=== PATIENT | female | born 1990 | race Caucasian/White ===

== ENCOUNTER → 2017-10-27 15:37 | Outpatient (CLI) | payer BC, SELFPAY ==
--- NOTE | 2017-10-27 15:42 | RAD_ITS ---
STUDY: X-RAY - LUMBAR SPINE REASON FOR EXAM: Female, 27 years old. Pain TECHNIQUE: 5 view(s) of the lumbar spine were obtained. COMPARISON: None FINDINGS: There is no evidence of fracture or dislocation in the lumbar spine. The vertebral body heights and disc spaces are well-maintained. There are no significant degenerative changes. RAD/L/S Spine Min 4 Views IMPRESSION: No fracture or dislocation in the lumbar spine. Electronically Signed: Stanley Ga, at 23:46 EDT Tel , Service support ,
== END ==
PROVIDERS: PCP Nurse Practitioner; Visit Provider Nurse Practitioner
DX: M54.30 Sciatica, unspecified side (principal)
CPT/HCPCS: 72110

== ENCOUNTER 2017-11-10 11:23 | Outpatient (RCR) | payer BC, SELFPAY ==
--- NOTE | 2017-11-10 13:46 | HP.PTEVAL_ITS ---
Patient's Visit Information AGUILAR CAMARILLO is a 27 year old F referred to Physical Therapy by Jeanie Hernandez NP.MCIESA with a diagnosis of sciatica and core strengthening.. Date of Evaluation: 11/10/17 Physical Therapist: Cecilio Vitale - Visit Plan Frequency: 2x /Week Duration: 4 Weeks Plan: start with ext based exercises, modalities in prone to reduce symptoms. Progress core strengthening in neutral spine. - Subjective Subjective: Pt. is here today for her initial evaluation with diagnosis of sciatica and core strengthening. Pt. reports injuring her back while at work, lifting large bag of dog food. Pt. was given prednisone with relief, and is now taking mobic, but has minimal relief. Pt. had an xray wtih no acute injures. Pt. does have radiating pain down her R leg to ankle at times, but has improved to knee currently. Pt. reports sleeping okay, but last night was bad and was unable to sleep much. Pt. denies N/T in either LE. Pt. denies that her legs are giving out on her. Pt. is back to work, but has been avoiding lifting as much as she can. Pt. is hopeful to reduce her pain and get back to all previous activities withtou limitations. - Pain lumbar spine Pain Intensity (Out of 10): 0 Pain Intensity Range: 0, 3 R lateral hip Pain Intensity (Out of 10): 3 Pain Intensity Range: 1, 6 Comment: burning - Objective POSTURE: Pt. has normal iliasc crest heights, pt. has normal CHARU in stance. Pt. has slight reduction in lumbar lordosis with rounded shoulders. PALPATION: Pt. has increased tenderness throughout bilateral lumbar erector spinea, R worse than L. Pt. has increased tenderness at R SI region and R piriformis region. Pt. has minimal symptoms with spring testing, no hypombility noted. NEUROLOGICAL: Pt. has normal sensation to light and sharp touch of bilateral LEs. Pt. has 2+ bilateral achilles and patellar DTR. Pt. is able to rise on heels and toes without issues. ROM: LUMBAR SPINE: flexion min loss increase NW sided LS, ext min loss tightness in lumbar spine, SB R nil loss NE, Sb L nil loss NE, rotation nil loss bilat NE. Pt. has normal hip ROM, except has increase in symptoms with figure 4 positioning. MMT: RLE- ankle/knee 5/5 throughout; hip- flexion 4/5, and 4/5, ext 4/5. LLE- ankle/knee 5/5 throughout; hip- flexion 4/5, abd 4/5, ext 4/5. Core strength- poor+. GAIT: Pt. ambulates without AD. Pt. has slight flexed poosture in stance. Pt. has normal step length , minimal arm swing. STAIRS: Pt. negotiates with 1 HR with reciprocal pattern without increase in symptoms. - Special Tests L/S Slump test left side: Negative L/S Slump test right side: Positive L/S Left Straight Leg Raise: Positive L/S Right Straight Leg Raise: Negative Lumbar Standing: Flexion - Mechanical Response: No effect Lumbar Standing: Flexion - Symptoms During Testing: Increases Lumbar Standing: Flexion - Symptoms After Testing: No worse Lumbar Standing: Extension - Mechanical Response: No effect Lumbar Standing: Extension - Symptoms During Testing: Centralizing Lumbar Standing: Extension - Symptoms After Testing: No better Lumbar Standing: Right Side Glides - Mechanical Response: No effect Lumbar Standing: Right Side [place] - Symptoms During Testing: No effect Lumbar Standing: Right Side [place] - Symptoms After Testing: No effect Lumbar Standing: Left Side [place] - Mechanical Response: No effect Lumbar Standing: Left Side [place] - Symptoms During Testing: No effect Lumbar Standing: Left Side [place] - Symptoms After Testing: No effect Lumbar Lying: Flexion - Mechanical Response: No effect Lumbar Lying: Flexion - Symptoms During Testing: No effect Lumbar Lying: Flexion - Symptoms After Testing: No effect Lumbar Lying: Extension - Mechanical Response: No effect Lumbar Lying: Extension - Symptoms During Testing: Centralizing Lumbar Lying: Extension - Symptoms After Testing: No better Lumbar Static: Slouched Sit - Mechanical Response: No effect Lumbar Static: Slouched Sit - Symptoms During Testing: Increases Lumbar Static: Slouched Sit - Symptoms After Testing: No worse Lumbar Static: Sitting Erect - Mechanical Response: No effect Lumbar Static: Sitting Erect - Symptoms During Testing: Decreases Lumbar Static: Sitting Erect - Symptoms After Testing: No better Lumbar Static:Lying Prone in Extension - Mechanical Response: No effect Lumbar Static: Lying Prone in Extension - Sx During Testing: Increases Lumbar Static: Lying Prone in Extension - Sx After Testing: No better - Goals Goal 1:: Pt. to be I with HEP. Goal Time Frame: 4-6 Weeks Goal 2:: Pt. to have increased lumbar ROM by 25% in all directions allowing increased tolerance to all functional mobility. Goal Time Frame: 4-6 Weeks Goal 3:: Pt. to have increased B hip and core strength by 1/2 grade to reduce stress applied to lumbar spine with all functional mobility. Goal Time Frame: 4-6 Weeks Goal 4:: Pt. to resume all work activities without increase in symptoms. Goal Time Frame: 4-6 Weeks Goal 5:: Pt. to sleep throughout the night without increase in symptoms allowing for increased quality of life. Goal Time Frame: 4-6 Weeks - Rehabilitation Potential Physical Therapy Diagnosis: Pt. has signs and symptoms of sciatica and core strengthening. Pt. has positive dural signs as seen in slump testing and SLR testing. Pt. would benefit from extension progression, modalities to reduce symptoms followed by core strengthening to reduce stress applied to lumbar spine with all work and functional mobility. Rehabilitation Potential: Excellent - Anticipated Interventions Patient/Client Instruction: Educate patient on: Condition, Plan of Care, Risk Factors, Benefits of Fitness Program For the Purpose of:: To improve decision making, To facilitate caregiver knowledge, To improve self management, To prevent re-injury, To improve ability to perform tasks related to life management, To improve tolerance to ADL's Therapeutic Exercise to Include: Strength training, Power training, Endurance training, Body mechanics, Postural training, Flexibilty training, Passive ROM, Active ROM, Dynamic Lumbar Stabilization, Karen Exercises For the Purpose of:: To decrease pain, To decrease swelling/inflammation, To increase ROM, To improve nutrient delivery to tissue, To increase oxygenation perfusion, To improve muscle performance and motor function, To improve ability to perform ADL's, To increase tolerance to activity/condition/position, To improve performance and independence with ADL's, To decrease level of supervision to perform tasks, To improve ability of physical actions for home/ community/work/leisure, To increase flexibility/ROM Manual Therapy Techniques to Include: Mobilization, Functional dry needling, Soft tissue mobilization For the Purpose of:: To decrease pain, To decrease swelling/inflammation, To increase ROM, To improve nutrient delivery to tissue, To increase oxygenation perfusion, To improve muscle performance and motor function IF ES: Yes Cryotherapy (ice pack, ice massage): Yes For the Purpose of:: To decrease pain, To decrease swelling/inflammation, To increase ROM Thank you for the opportunity to evaluate your patient. For Medicare and Medicare HMO plans, please review the plan of care and approve it. It will need to be FAXED BACK to us at [phone] for Medicare purposes. Please let me know if there are questions or concerns regarding this plan of care. Physician Signature: Date:
--- NOTE | 2018-05-19 08:43 | HP.PTDCNRP_ITS ---
HP - Discharge Summary (1) - Patient Information AGUILAR CAMARILLO was seen in my office for initial evaluation on 11/10/17. The following Plan of Care was established for this patient: Initial Frequency: 2x /Week Initial Duration: 4 Weeks - Anticipated Interventions Patient/Client Instruction: Educate patient on: Condition, Plan of Care, Risk Factors, Benefits of Fitness Program For the Purpose of:: To improve decision making, To facilitate caregiver knowledge, To improve self management, To prevent re-injury, To improve ability to perform tasks related to life management, To improve tolerance to ADL's Therapeutic Exercise to Include: Strength training, Power training, Endurance training, Body mechanics, Postural training, Flexibilty training, Passive ROM, Active ROM, Dynamic Lumbar Stabilization, Karen Exercises For the Purpose of:: To decrease pain, To decrease swelling/inflammation, To increase ROM, To improve nutrient delivery to tissue, To increase oxygenation perfusion, To improve muscle performance and motor function, To improve ability to perform ADL's, To increase tolerance to activity/condition/position, To improve performance and independence with ADL's, To decrease level of supervision to perform tasks, To improve ability of physical actions for home/community/work/leisure, To increase flexibility/ROM Manual Therapy Techniques to Include: Mobilization, Functional dry needling, Soft tissue mobilization For the Purpose of:: To decrease pain, To decrease swelling/inflammation, To i ncrease ROM, To improve nutrient delivery to tissue, To increase oxygenation perfusion, To improve muscle performance and motor function IF ES: Yes Cryotherapy (ice pack, ice massage): Yes For the Purpose of:: To decrease pain, To decrease swelling/inflammation, To increase ROM This patient was last seen in our office 11/10/17. Pertinent comments regarding their Physical therapy will appear below: Pt. was seen for her initial evaluation wtih diagnosis of need for core strengthening. Pt. was seen for her initial evaluation then not since. Pt. will be DC from PT at this point in time. At this point I will be discontinuing this patient from physical therapy. I would be happy to see this patient again in the future if found appropriate by the physician. Thank you! Cecilio Vitale
== END 2017-11-10 19:00 | disposition home or self-care (01) ==
LOC: PT 11:23
PROVIDERS: Family Provider Nurse Practitioner; PCP Nurse Practitioner; Visit Provider Nurse Practitioner
DX: M54.30 Sciatica, unspecified side (principal)
CPT/HCPCS: 97014; 97162; G0283

== ENCOUNTER → 2017-11-10 15:09 | Outpatient (CLI) | payer BC, SELFPAY ==
--- NOTE | 2017-11-10 15:12 | RAD_ITS ---
STUDY: X-RAY - PELVIS AND RIGHT HIP REASON FOR EXAM: Female, 27 years old. Right hip pain. TECHNIQUE: Radiological exam, hip, unilateral, with pelvis when performed; 2 or 3 views. COMPARISON: None. FINDINGS: There is a non-specific bowel gas pattern. A T-shaped intrauterine device is incidentally noted in the mid pelvic soft tissues. There is narrowing with cortical sclerosis of the bilateral sacroiliac joints, consistent with degenerative osteoarthritic changes. Normal bilateral superior and inferior pubic rami. Normal pubic symphysis. Normal bilateral ischial tuberosities. Normal visualized femoral head. Normal acetabulum. Normal hip joint. There is no demonstrated osseous destructive lesion or fracture. RAD/Hip 2-3 Views with Pelvis IMPRESSION: 1. Unremarkable right hip. 2. 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 3. Incidental note of a T-shaped IUD in mid pelvis. Electronically Signed: Omar Malhotra MD at 19:45 EDT , Service support ,
== END ==
PROVIDERS: Family Provider Nurse Practitioner; PCP Nurse Practitioner; Visit Provider Nurse Practitioner
DX: M25.551 Pain in right hip (principal)
CPT/HCPCS: 73502

== ENCOUNTER → 2018-03-23 12:32 | Outpatient (CLI) | payer BC, SELFPAY | LOC: MRI 12:33 | PROVIDERS: Family Provider Nurse Practitioner; PCP Nurse Practitioner; Visit Provider Nurse Practitioner | DX: G43.909 Migraine, unspecified, not intractable, without status migrainosus (principal) | CPT/HCPCS: 70544 ==

== ENCOUNTER 2019-04-26 06:41 | Outpatient (CLI) | payer MEDICAID, SELFPAY ==
[2015-01-14 21:14] VITALS: BMI 19.7
[2019-04-26 06:56] VITALS: BMI 29.4
[2019-04-26] MEDS: 0.9% Saline Lock 10 ML Syringe IV ×2 (07:35→10:27)
[2019-04-26 07:48] LABS: Hematocrit 38.3 % (37-47); Hemoglobin 12.4 g/dL (12.0-15.0); Mean Corp Hgb Conc 32.4 g/dL (32-36); Mean Corpuscular Hgb 28.8 pg (27.0-32.0); Mean Corpuscular Volume 88.9 fL (81-99); Mean Platelet Vol. 10.7 fl (6.2-12.0); Platelet Count 224 K/mm3 (150-450); RBC Distribution Width CV 14.3 % (11.6-14.6); RBC Distribution Width SD 45.6 fl (35.1-43.9); Red Blood Count 4.31 M/mm3 (4.2-5.4); White Blood Count 12.8 K/mm3 (4.4-11.0)
[2019-04-26 07:58] LABS: AST(SGOT) 17 U/L (15-37); Alanine Aminotransfer ALT/SGPT 15 U/L (13-56); Creatinine, Serum 0.71 mg/dL (0.55-1.02); EST Glomerular Filtration Rate 105 mL/min (>60); Est Glom Filt Rate - Afr Amer 127 mL/min (>60); Estimated Creatinine Clearance 102.78 ml/min; Uric Acid 5.6 mg/dL (2.6-6.0)
--- NOTE | 2019-04-26 08:51 | OB.TRI.HP_ITS ---
History of Present Illness Date of Service: 04/26/19 Was patient seen by the physician?: Yes Reason For Visit: SEIZURE Date of Service: 04/26/19 Final ANSHUL: 05/06/19 Final ANSHUL Source: US <20 weeks Gestational age: 38 Weeks and 4 Days History of Present Illness: 29yo @ 38.2 weeks - presents with ?? Seizure. pt partner states that at 2am patient had a muscle spasm and woke up her partner. At that point partner said that she went rigid and appeared to go blue in her lips with foaming at the mouth. Patient started having bleeding from the mouth from biting her tongue. Patient partner called the squad but when they arrived the patient was already alert and they declined squad. Patient arrived on labor and delivery reports she feels kind of in a days. Patient denies any illicit drug use, new medications, vaping. Patient reports she is been having back spasms for the last 2 months otherwise no changes with medical history. She denies any significant family history of her seizure disorder. Allergies Penicillins Adverse Reaction (Verified 01/14/15 21:16) Unknown Laboratory Studies: Laboratory Tests 04/26/19 04/26/19 04/26/19 Range/Units 07:30 07:30 07:30 WBC 12.8 H (4.4-11.0) K/mm3 RBC 4.31 (4.2-5.4) M/mm3 Hgb 12.4 (12.0-15.0) g/dL Hct 38.3 (37-47) % MCV 88.9 (81-99) fL MCH 28.8 (27.0-32.0) pg MCHC 32.4 (32-36) g/dL RDW Std Deviation 45.6 H (35.1-43.9) fl RDW Coeff of Ashley 14.3 (11.6-14.6) % Plt Count 224 (150-450) K/mm3 MPV 10.7 (6.2-12.0) fl Creatinine 0.71 (0.55-1.02) mg/dL Estim Creat Clear Calc 102.78 ml/min Est GFR (MDRD) Af Amer 127 (>60) mL/min Est GFR (MDRD) Non-Af 105 (>60) mL/min Uric Acid 5.6 (2.6-6.0) mg/dL AST 17 (15-37) U/L ALT 15 (13-56) U/L Ur Drug Screen Comment Review of Systems Constitutional: Reports: Anorexia Eyes: Denies: Blurred vision HEENT: Denies: Head Aches Cardiovascular: Denies: Chest Pain Gastrointestinal: Reports: - - mild contractions Neurological: Denies: Blurred vision, Slurred speech, Headaches, Numbness Physical Exam General: Alert, Oriented x3 Abdomen: Soft, Non Tender, Gravid Neurological: Cranial nerves II-XII grossly intact, Deep Tendon Reflexes 2+/4 and Symmetrical, Neuro grossly intact, Motor Exam 5/5 strength throughout, Muscle tone normal, Sensory exam intact to light touch and pain, Coordination no rmal. Negative for: Facial Droop, Slurred Speech, Clonus Presentation: Cephalic Cervix Dilation (cm): 3 NST - FHR Rate Baby A Baseline: 125 Variability:: Moderate Accelerations:: 15 x 15 Decelerations:: None NST Reactive:: Yes FHR Category:: Category I Uterine Activity:: irregular Impression/Plan 29-year-old at 38+ weeks gestation here for evaluation for possible seizure Eclamptic [id number] labs are still pending but overall normal Vital signs stable Neurology consult-if not available for consultation today patient will follow-up as an outpatient Monitor heart rate and toco Neuro exam is unremarkable Continue to monitor and if stable will DC home after few hours of observation
[2019-04-26 09:03] LABS: International Normalized Ratio 0.9; Partial Thromboplast Time 25.2 Seconds (24.1-36.2); Prothrombin Time (Protime)PT. 12.3 SECONDS (11.7-14.9)
[2019-04-26 09:07] LABS: Amphetamine Urine VISTA NEGATIVE (<1000 ng/mL); Barbiturate Urine VISTA NEGATIVE (< 200 ng/mL); Benzodiazepine Urine VISTA NEGATIVE (< 200 ng/mL); Cocaine Urine VISTA NEGATIVE (< 300 ng/mL); Ecstacy Urine VISTA NEGATIVE (< 500 ng/mL); Methadone Urine VISTA NEGATIVE (< 300 ng/mL); PCP Urine VISTA NEGATIVE (< 25 ng/mL); THC Urine VISTA NEGATIVE (< 50 ng/mL); Vista UDS pH Range 7
[2019-04-26 10:01] LABS: Protein, Urine (Random) 29.8 mg/dL (<11.9); Protein:Creat Ratio 204 mg/g CRE (0-200)
[2019-04-26] MEDS: Ondansetron 4 MG/2 ML Vial IV (10:16)
--- NOTE | 2019-04-26 10:43 | NURSING ---
This instructor gave meds with Esha Henderson, student nurse. The first vial of zofran was short 0.5ml, so vial was wasted per primary nurse and a new vial used.
[2019-04-26] MEDS: Acetaminophen 500 MG Tablet 1000 MG PO (11:25)
--- NOTE | 2019-04-26 11:29 | NURSING ---
This instructor directly observed tylenol administration by Esha Henderson student nurse.
[2019-04-26] MEDS: levETIRAcetam 500 MG Tablet PO (12:51)
== END 2019-04-26 12:55 | disposition home or self-care (01) ==
LOC: WPOUT 06:50 → WP 06:51
PROVIDERS: Obstetrics & Gynecology; Family Provider Nurse Practitioner; PCP Nurse Practitioner; Referring Provider Obstetrics & Gynecology; Visit Provider Obstetrics & Gynecology
DX: O26.893 Other specified pregnancy related conditions, third trimester (principal); M62.838 Other muscle spasm; Z3A.38 38 weeks gestation of pregnancy
CPT/HCPCS: 96374; 36415; 59025; 59050; 80307; 82565; 82570; 84156; 84450; 84460; 84550; 85027; 85610; 85730; 99218; A4216; G0378; J2405

== ENCOUNTER 2019-04-29 11:40 | Inpatient (IN) | payer MEDICAID, SELFPAY ==
[2019-04-29 12:03] VITALS: BMI 29.7
[2019-04-29] MEDS: Lactated Ringers 1,000 ML 50 ML IV (12:20)
[2019-04-29 12:31] LABS: Absolute Lymphocyte Count 1.79 X10^3/uL (0.83-4.51); Absolute Neutrophil Count 7.8 X10^3/uL (2.0-7.7); Basophil# 0.04 X10^3/uL; Basophil% 0.4 % (0-1); Eosinophil# 0.08 X10^3/uL; Eosinophils% 0.8 % (0-5); Hematocrit 36.1 % (37-47); Hemoglobin 11.7 g/dL (12.0-15.0); Lymphocyte # 1.79 X10^3/ul (4.0); Lymphocyte % 16.9 % (19-41); Mean Corp Hgb Conc 32.4 g/dL (32-36); Mean Corpuscular Volume 89.6 fL (81-99); Mean Platelet Vol. 10.4 fl (6.2-12.0); Monocyte# 0.81 X10^3/uL; Monocyte% 7.6 % (0-10); NRBC Flagged by Analyzer 0 % (0-5); Neutrophil # 7.79 X10^3/uL (2.7-7.7); Neutrophil % 73.3 % (47-70); Platelet Count 215 K/mm3 (150-450); RBC Distribution Width CV 14.4 % (11.6-14.6); RBC Distribution Width SD 46.2 fl (35.1-43.9); Red Blood Count 4.03 M/mm3 (4.2-5.4); White Blood Count 10.6 K/mm3 (4.4-11.0)
[2019-04-29] MEDS: Oxytocin 30 units/NS 500 ml 30 UNITS/500 ML IV.SOLN IV (13:15)
[2019-04-29] MEDS: Lactated Ringers 500 ML 999 ML IV (13:52)
[2019-04-29] MEDS: fentaNYL-bupivacaine (epidural) 100 ML BAG EPIDURAL (14:33)
[2019-04-29] MEDS: Oxytocin 30 units/NS 500 ml 30 UNITS/500 ML IV.SOLN 334 UNITS IV (16:00)
--- NOTE | 2019-04-29 16:12 | HP.PCM_ITS ---
History Date of Admission: 04/29/19 Final ANSHUL: 05/06/19 Final ANSHUL Source: US <20 weeks Gestational age: 39 Weeks and 0 Days History of this : This is a 29 year-old, avid 2 para 1 at 39 weeks gestation presents sexual labor due to history of what is been diagnosed as new onset seizures during the . She was a started this week on Keppra per neurology and has follow- up with them early next week. She denies any seizures since her last visit. She is had good movement, some irregular contractions. No gross vaginal bleeding or leaking of fluid. Past medical history is significant for history of depression, and asthma. Symmetrical history: One full-term vaginal delivery without complications. Medical History: Medical History (Last Updated 04/26/19 @ 08:56 by Rdaha Lam MD) Depression affecting O99.340, F32.9 Allergies Penicillins Adverse Reaction (Verified 04/29/19 12:06) Rash Home Medications: Home Medications Ferrous Sulfate [Iron] 1 tab PO DAILY 04/26/19 Ondansetron HCl [Zofran] 1 tab PO DAILY 04/26/19 Prenatabs FA 1 tab PO DAILY MDD nutrition 04/26/19 Zantac 1 tab PO DAILY 04/26/19 Levetiracetam 500 mg PO BID 04/29/19 Smoking Status: Former smoker History Past Pregnancies: Past Pregnancies Delivery Date Name GA/Weeks Outcome Route Weight Gender Labor Length Anesthesia Delivery Location Provider FOB Expected Infant Delivery Method: Spontaneous Vaginal Review of Systems Constitutional: Denies: Chills, Fever Eyes: Denies: Blurred vision Cardiovascular: Denies: Chest Pain Respiratory: Denies: Cough Skin: Denies: Rash Physical Exam General: Alert, Cooperative, No apparent distress Cardiovascular: Regular rate Lungs: Normal air movement Abdomen: Soft, Non Tender, Gravid Extremities:: Other - edema 1+ [employer]: Normal external genitalia Estimated gestational size: Appropriate for gestational size Presentation: Cephalic Cervix Dilation (cm): 5 - Soft, mid position, AROM with return of moderate amount of clear fluid Station: -2 Effacement (%): 70 Assessment/Plan All Active Problems (Last Updated 04/26/19 @ 08:56 by Radha Lam MD) Skin abscess (Acute) UTI (lower urinary tract infection) (Acute) Lumbar back pain (Acute) This is a 29 year-old, G2, P1 at 39 weeks station with new onset seizures during the for induction of labor. Estimated weight is less than 4500 g and pelvis clinically adequate to expect vaginal delivery. We will proceed with artificial rupture membranes and Pitocin induction of labor. May have epidural, nitrous oxide or Nubain as needed for pain control. Patient questions were answered to her satisfaction she agrees to proceed. In addition, patient states that she declines LARC after delivery. Likely elect for Mirena IUD insertion in the office.
--- NOTE | 2019-04-29 16:30 | PCM.OPRPT ---
Vaginal Delivery Maternal Presentation: Medically Indicated Induction - New onset seizures during the Method of Induction: Pitocin, Amniotomy Medical Reason for Induction: - - new onset seizures during Amniotic Membrane Rupture Type: Artificial Amniotic Fluid Description: Clear Final ANSHUL: 05/06/19 Final ANSHUL Source: US <20 weeks Gestational age: 39 Weeks and 0 Days Date of Procedure: 04/29/19 Pre-Operative Diagnosis: labor Post-Operative Diagnosis: same Surgery/ Procedure Performed: Spontaneous Vaginal Delivery Type of Anesthesia: Epidural Description of Procedure: A vigorous female was delivered CHINO over a second-degree perineal laceration. The remainder the infant was delivered with maternal pushing and gentle traction only in less than 15 seconds. The Pitocin infusion was initiated for active management of the third stage. The cord was clamped and cut after 1 minute. The was attended to by the waiting nursing staff. The placenta was delivered spontaneously and intact. The cervix and vagina were intact. The second-degree perineal laceration was repaired with 3-0 Vicryl suture in a running standard fashion. Sponge and needle counts were correct. A vaginal sweep was completed by me. Presentation: CHINO Placental Delivery Description: Spontaneous Placenta Disposition: [facility] Cord Vessel Description: 3 Vessels Cord Entanglement: None Drain: - - none Estimated Blood Loss: 300 Infant A gender: Female - Tawana (1 minute): 8 (5 minute): 9 Episiotomy Description: None Laceration: 2nd degree - perineal Medications given after delivery: IV Pitocin Complications: None
[2019-04-29] MEDS: Naproxen 250 MG Tablet 500 MG PO (19:59)
[2019-04-29 20:00] VITALS: BP 103/65; PULSE 84; RESP 16; TEMP 36.6
[2019-04-29] MEDS: levETIRAcetam 500 MG Tablet PO (22:04)
[2019-04-29] MEDS: Acetaminophen 500 MG Tablet 1000 MG PO (23:45)
[2019-04-30] VITALS: BP 101/64; PULSE 70; RESP 16; TEMP 36.3
[2019-04-30 03:30] VITALS: BP 97/46; PULSE 82; RESP 16; TEMP 36.9
[2019-04-30] MEDS: Naproxen 250 MG Tablet 500 MG PO ×3 (04:01→22:47)
--- NOTE | 2019-04-30 09:48 | PN.OBGYN_ITS ---
Subjective: pain well controlled, average lochia - Physical Exam General: Alert, Cooperative, No apparent distress Vital Signs Temp Pulse Resp BP 98.5 F 82 16 97/46 L 04/30/19 03:30 04/30/19 03:30 04/30/19 03:30 04/30/19 03:30 Weight: 78.7 kg Body Mass Index (BMI) 29.7 Intake and Output for Last 24 Hours 04/28/19 04/29/19 04/30/19 23:59 23:59 23:59 Intake Total 1405.50 / 1405.50 Output Total 650 / 650 450 / 450 Balance 755.50 / 755.50 -450 / -450 Laboratory Tests Past 24 Hrs 04/29/19 04/29/19 12:20 12:20 WBC 10.6 RBC 4.03 L Hgb 11.7 L Hct 36.1 L MCV 89.6 MCH 29.0 MCHC 32.4 RDW Std Deviation 46.2 H RDW Coeff of Ashley 14.4 Plt Count 215 MPV 10.4 Immature Gran % (Auto) 1.000 H Neut % (Auto) 73.3 H Lymph % (Auto) 16.9 L [place] % (Auto) 7.6 Eos % (Auto) 0.8 Baso % (Auto) 0.4 Absolute Neuts (auto) 7.8 H Absolute Lymphs (auto) 1.79 Nucleated RBC % 0 Blood Type O POSITIVE Antibody Screen NEGATIVE Medical Necessity - Tobacco Use Smoking Status: Former smoker Assessment/Plan All Active Problems (Last Updated 04/26/19 @ 08:56 by Radha Lam MD) Skin abscess (Acute) UTI (lower urinary tract infection) (Acute) Lumbar back pain (Acute) PPD#1 s/p s/p doing well routine care likely home tomorrow
[2019-04-30] MEDS: Acetaminophen 500 MG Tablet 1000 MG PO ×2 (10:09→18:57)
[2019-04-30] MEDS: levETIRAcetam 500 MG Tablet PO ×2 (10:09→22:02)
[2019-04-30 10:11] VITALS: BP 105/64; PULSE 77; RESP 14; TEMP 36.7; O2SAT 98
[2019-04-30 14:00] VITALS: BP 112/68; PULSE 90; RESP 16; TEMP 36.1; O2SAT 96
[2019-04-30 19:33] VITALS: BP 102/59; PULSE 73; RESP 16; TEMP 36; O2SAT 98
[2019-05-01 01:33] VITALS: BP 119/80; PULSE 70; RESP 16; TEMP 36; O2SAT 99
[2019-05-01] MEDS: Acetaminophen 500 MG Tablet 1000 MG PO (06:32)
--- NOTE | 2019-05-01 06:34 | NURSING ---
Pt. c/o swelling in hands and feet and a headache rated 3/10 upon waking up. 1+ non pitting edema noticed by this RN in pt's hands and feet bilaterally. Pt. states headache has since went away. BP obtained and resulted as 96/60 with a heart rate of 66. Pt. denies epigastric pain or vision changes.
[2019-05-01 06:36] VITALS: BP 96/60; PULSE 66; RESP 17
[2019-05-01] MEDS: Naproxen 250 MG Tablet 500 MG PO (07:42)
--- NOTE | 2019-05-01 08:47 | PCM.PN.OB ---
Subjective: Doing well per patient and nursing staff. Ambulating and taking PO without difficulty. Voiding and passing flatus. Denies any chest pain, SOB, increased vaginal bleeding or pain. Planning D/C home today. Has neurology appt. today for seizures. - Physical Exam General: Alert, Oriented x3, Cooperative, No apparent distress HEENT: Atraumatic, Normocephalic Neck: Trachea Midline Lungs: Clear to auscultation, Normal air movement, No rhonchi, No wheeze Cardiovascular: Regular rate, Regular Rhythm, No murmurs Abdomen: Bowel Sounds Present, Soft, - - Fundus firm 2 below U. Extremities: No edema, - - Mirza's negative Neurological: Deep Tendon Reflexes 2+/4 and Symmetrical Psych/Mental Status: Normal Affect, Appropriate Vital Signs Temp Pulse Resp BP Pulse Ox 96.8 F L 66 17 96/60 99 05/01/19 01:33 05/01/19 06:36 05/01/19 06:36 05/01/19 06:36 05/01/19 01:33 Oxygen Delivery Method Room Air Weight: 173 lb 8.061 oz Body Mass Index (BMI) 29.7 Intake and Output for Last 24 Hours 04/29/19 04/30/19 05/01/19 23:59 23:59 23:59 Intake Total 1405.50 / 1405.50 Output Total 650 / 650 450 / 450 Balance 755.50 / 755.50 -450 / -450 Medical Necessity - Tobacco Use Smoking Status: Former smoker Assessment/Plan All Active Problems (Last Updated 04/26/19 @ 08:56 by Radha Lam MD) Skin abscess (Acute) UTI (lower urinary tract infection) (Acute) Lumbar back pain (Acute) A:PPD #2 P: 1) Discharge home today 2) Discharge instructions reviewed. 3) Follow up in 2 weeks and 6 weeks .
--- NOTE | 2019-05-01 08:53 | DCINST_ITS ---
Discharge Diet: No Restrictions Discharge Activity: Return to Normal Activity, May not drive while taking narcotic pain medications., May Shower, May Take a Tub Bath May resume sexual activity in: 4-6 weeks Weight Bearing Status: Full weight bearing Additional Activity Instructions:: Nothing in the vagina for 4-6 weeks. You may return to work/school in 6 weeks. Call your doctor if your incision/area has: Continuous Slow Oozing, Sudden Increased Bleeding, Increased Pain/ Swelling, Increased Redness, Foul Smelling Discharge Call your doctor if you observe: Fever of 101 or Higher, Inability to urinate, Inability to have a bowel movement, Using more than one pad per hour, Shortness of breath, Chest pain, Increased palpitations (irregular heartbeat), Calf discomfort Additional Instructions: If you experience any of the following, contact your healthcare provider. * Bleeding that soaks a pad every hour for 2 hours * Fever 100.4 or higher * Unrelieved incision or abdominal pain * Swelling, redness, discharge or bleeding from your incision or episiotomy site * Your incision begins to separate * Problems urinating (including inability to urinate or burning while urinating). * Visual changes * Severe headache * Flu-like symptoms * Pain or redness in one of both of your breasts * Pain, warmth, tenderness or swelling in your legs, especially the calf area * Frequent nausea and vomiting * Symptoms of depression or anxiety If you experience any of the following, call 911 or go to the nearest Emergency Room. * Chest pain * Problems breathing * Seizure activity * Partial or complete paralysis of a body part, slurred speech, weakness or drooping of the face, or a sudden inability to walk or hold your balance Allergies/Adverse Reactions: Allergies Penicillins Adverse Reaction (Verified 04/29/19 12:06) Rash Medications to take at Discharge Ferrous Sulfate [Iron] 1 tab PO DAILY 04/26/19 Prenatabs FA 1 tab PO DAILY MDD nutrition 04/26/19 Zantac 1 tab PO DAILY 04/26/19 Levetiracetam 500 mg PO BID 04/29/19 Naproxen [Naprosyn] 500 mg PO Q8H PRN PRN #30 tab 05/01/19 The following prescriptions were given: Naproxen [Naprosyn] 500 mg PO Q8H PRN PRN #30 tab PRN Reason: Mild Pain (1-3/10) Transmission Status: Pending to [id number] When: Call to make an appointment with your doctor in 2 weeks and 6 weeks. Primary Care Physician: Jeanie Hernandez NP-C [Primary Care Provider] - Test Results: Test results from this visit will be discussed in further detail at your follow- up appointment, if applicable.
[2019-05-01 09:04] VITALS: BP 102/69; PULSE 72; RESP 16; TEMP 36.3
[2019-05-01] MEDS: Senna/Docusate Sodium 1 Tablet PO (11:03)
[2019-05-01] MEDS: levETIRAcetam 500 MG Tablet PO (11:04)
== END 2019-05-01 11:25 | disposition home or self-care (01) | DRG 560 ==
PROVIDERS: Admitting Provider Obstetrics & Gynecology; Family Provider Nurse Practitioner; PCP Nurse Practitioner; Referring Provider Obstetrics & Gynecology; Visit Provider Obstetrics & Gynecology
DX: O99.354 Diseases of the nervous system complicating childbirth (principal); G40.909 Epilepsy, unspecified, not intractable, without status epilepticus; Z3A.39 39 weeks gestation of pregnancy; Z37.0 Single live birth; O70.1 Second degree perineal laceration during delivery
CPT/HCPCS: 59025; 59050; 85025; 86850; 86900; 86901; 99218; J7120; G0378